=== PATIENT | male | born 1930 | race Caucasian/White ===

== ENCOUNTER → 2016-12-30 12:48 | Outpatient (CLI) | payer MEDICARE, OTHER ==
[2015-07-26 10:03] VITALS: BMI 23.8
[~2016-12-30 12:48] MED LIST: ACETAMINOPHEN325 MG PO; BAYER CHEWABLE81 MG PO; CARDURA8 MG PO; COLACE100 MG PO; CRESTOR5 MG PO; HYDROCODON-ACE1 EAC7 PO; IBUPROFEN400 MG PO; LISINOPRIL10 MG PO; NITROSTAT0.4 MG SL; OMEPRAZOLE40 MG PO; PLAVIX75 MG PO
== END | disposition home or self-care (01) ==
LOC: D.CT 12:48
DX: I71.2 Thoracic aortic aneurysm, without rupture (principal)

== ENCOUNTER → 2017-07-18 11:27 | Outpatient (CLI) | payer MEDICARE, OTHER ==
[2015-07-26 10:03] VITALS: BMI 23.8
== END | disposition home or self-care (01) ==
LOC: D.CT 08:30
DX: I25.10 Atherosclerotic heart disease of native coronary artery without angina pectoris (principal); I10 Essential (primary) hypertension; E78.5 Hyperlipidemia, unspecified

== ENCOUNTER → 2018-07-05 10:06 | Outpatient (CLI) | payer OTHER ==
[2015-07-26 10:03] VITALS: BMI 23.8
--- NOTE | ~2018-07-05 | EC ---
PATIENT:NGOZI CASTILLO DATE OF SERVICE: 07/05/18 SEX: M MEDICAL RECORD: [id number] DATE OF : [birth year] LOCATION:[facility] AGE OF PATIENT: 87 ADMISSION DATE: 07/05/18 REFERRING PHYSICIAN: INTERPRETING PHYSICIAN: STACEY CBOB MD ECHOCARDIOGRAM REPORT ECHO CHARGES 4 ECHO COMPLETE Date: 07/05/18 CLINICAL DIAGNOSIS: ISHCEMIC HEART DISEASE, ASSESS EF. HX OF CAD/STENTS/HTN ECHOCARDIOGRAPHIC MEASUREMENTS (adult normal given) AC root (d.<3.7cm) 4.3 cm LV Septum d (<1.2 cm> 1.3 cm Valve Excursion 1.5 cm LV Septum (systole) 1.6 cm Left Atria (s.<4.0cm> 3.6 cm LVPW d(<1.2cm) 1.6 cm RV (d.<2.3cm) 4.3 cm LVPW (sytole) 1.8 cm LV diastole(<5.6CM) 3.9 cm MV E-F(>70mm/sec) cm LV systole 2.6 cm LVOT Diameter 1.8 cm MV exc.(>10mm) 1.1 cm Est.ejection fraction (50-75%) % DOPPLER: LVIT cm/sec A 87.0 cm/sec E 47.0 cm/sec LA cm/sec RVSP 21 mmHg LVOT 79 cm/sec AOP1/2T 623 m/s Asc. 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 Cobb TAPE# PACS Pericardial Effusion N DATE OF SERVICE: ECHOCARDIOGRAM FINDINGS: 1. Left ventricular chamber size is within normal limits. Left ventricular systolic function is normal. Overall ejection fraction estimated at 55%. 2. Left atrium is within normal limits at 3.6 cm. Right atrium and right ventricular chamber sizes are mildly dilated. 3. Valvular structures have normal structure and motion. ECHOCARDIOGRAM REPORT [id number] NGOZI CASTILLO 4. Doppler interrogation reveals mild aortic insufficiency, trace tricuspid regurgitation, no other valvular insufficiency or stenosis. Pulmonary systolic pressure is estimated at 21 mmHg. 5. No evidence of pericardial effusion or left ventricular thrombus. TRANSINT:[id number] Voice Confirmation ID: [id number] DOCUMENT ID: [id number] STACEY COBB MD CC: [id number] DICTATION DATE: 07/05/18 1633 [employer]: 07/05/182027 [facility] [address] [id number]
== END | disposition home or self-care (01) ==
LOC: D.ECHO 10:05
PROVIDERS: ATTEND Orthopaedic Surgery
DX: I25.9 Chronic ischemic heart disease, unspecified (principal)

== ENCOUNTER → 2018-09-04 10:41 | Outpatient (CLI) | payer MEDICARE, OTHER ==
[2015-07-26 10:03] VITALS: BMI 23.8
== END | disposition home or self-care (01) ==
LOC: D.CT 10:41
PROVIDERS: ATTEND Internal Medicine Interventional Cardiology
DX: I72.3 Aneurysm of iliac artery (principal)